=== PATIENT | female | born 1950 ===

== ENCOUNTER 2025-07-18 06:00 | Day surgery (SDC) | payer OTHER ==
[2025-07-11 10:29] VITALS: BP 136/80
[~2025-07-18] VITALS: Ht 152.4 cm; Wt 81.6 kg
[~2025-07-18 06:00] MED LIST: ADULT LOW DOSE81 M1; ATORVASTATIN CA20 MG; CHLORTHALIDONE25 MG; LANTUS SOL100 UNIT/1; LOSARTAN POTAS100 MG; METFORMIN HCL1000 M2
[2025-07-18] MEDS ORDERED: CEFAZOLIN SODIUM 1,000 MG VIAL ONE (07:06)
[2025-07-18] MEDS ORDERED: GENTAMICIN SULFATE 40 MG/ML VIAL ONE (07:27)
[2025-07-18] MEDS ORDERED: CHLORHEXIDINE GLUCONATE 120 ML BOTTLE TOP ONE (07:28)
[2025-07-18] MEDS ORDERED: MACROBID 100 M100 MG PO (11:52)
[2025-07-18] MEDS ORDERED: TRAM1TAB98 PO (11:52)
== END 2025-07-18 14:30 | disposition home or self-care (01) ==
LOC: CIR.AMB 06:00
PROVIDERS: ATTEND Obstetrics & Gynecology Gynecology
DX: N81.5 Vaginal enterocele (principal); N81.11 Cystocele, midline; N81.6 Rectocele